=== PATIENT | female | born 1960 ===

== ENCOUNTER 2021-01-15 11:31 | Emergency (ER) | payer SELFPAY ==
[~2021-01-15] VITALS: Ht 165.1 cm; Wt 102.1 kg
[2021-01-15] MEDS ORDERED: LORazepam 2MG/ML-1ML VIAL IV ONE (11:45)
[2021-01-15 13:16] LABS: Basophils # (auto) 0 10 ^3/uL (0-0.2); Basophils % (auto) 0.4 % (0.0-2.0); Eosinophils # (auto) 0.1 10 ^3/uL (0-0.8); Eosinophils % (auto) 0.6 % (0.0-7.0); Hematocrit 43.7 % (36.0-46.0); Hemoglobin 14.6 g/dL (12.2-16.2); Lymphocytes # (auto) 2.1 10 ^3/uL (0.4-5.4); Lymphocytes % (auto) 20.8 % (10.0-50.0); Mean Corpuscular Hemoglobin 29.4 pg (28.0-32.0); Mean Corpuscular Hgb Conc. 33.5 g/dL (32.0-36.0); Mean Corpuscular Volume 87.8 fL (80.0-100.0); Monocytes # (auto) 0.6 10 ^3/uL (0-1.3); Monocytes % (auto) 6.1 % (0.0-12.0); Neutrophils # (auto) 7.1 10 ^3/uL (1.6-8.6); Neutrophils % (auto) 72.1 % (37.0-80.0); Nucleated Red Blood Cells % 0.1 %; Red Blood Cells 4.97 10^6/uL (4.0-5.20); Red Cell Distribution Width 13.5 % (11.8-14.3); White Blood Cell 9.9 10^3/uL (4.4-10.8)
[2021-01-15 13:31] LABS: Albumin 3.5 g/dL (3.4-5.0); Magnesium 2.6 mg/dL (1.6-2.6)
[2021-01-15 13:39] LABS: BUN/Creatinine Ratio 15.6; Bilirubin, Total 0.6 mg/dL (0.2-1.0)
[2021-01-15] MEDS ORDERED: POTASSIUM CHL 20 Meq TABLET PO ONE (14:00)
[2021-01-15] MEDS ORDERED: IOHEXOL 350 MG/ML 100ML IJ ONE (14:23)
[2021-01-15 17:56] VITALS: BP 107/53
== END 2021-01-15 19:03 | disposition home or self-care (01) ==
LOC: ER 11:31
DX: F41.9 Anxiety disorder, unspecified (principal); E11.9 Type 2 diabetes mellitus without complications; I10 Essential (primary) hypertension; E78.5 Hyperlipidemia, unspecified; Z88.6 Allergy status to analgesic agent; Z88.8 Allergy status to other drugs, medicaments and biological substances
CPT/HCPCS: 36415; 71045; 71275; 80053; 83735; 84484; 85025; 85379; 93005; 96374; 99285; J2060; Q9967